=== PATIENT | female | born 1970 | race American Indian/Alaskan Native ===

== ENCOUNTER 2022-09-18 12:41 | Emergency (ER) | payer MEDICAID ==
[2022-09-18] MEDS ORDERED: Sodium Chloride 0.9% 10 ML Syringe FLUSH PRN (12:56)
[2022-09-18] MEDS ORDERED: Ondansetron 4 MG/2 ML SDV IVPUSH ONE (13:38)
[2022-09-18] MEDS ORDERED: Sodium Chloride 0.9% 1,000 ML IV STA (13:38)
[2022-09-18 14:11] LABS: CORONAVIRUS COVID-19 NAA NEGATIVE (NEGATIVE)
[2022-09-18] MEDS ORDERED: Ketorolac 30 MG/ML SDV IVPUSH ONE (14:20)
== END 2022-09-18 15:20 | disposition home or self-care (01) ==
LOC: JD.ED 12:41
DX: A08.4 Viral intestinal infection, unspecified (principal); I10 Essential (primary) hypertension; Z20.822 Contact with and (suspected) exposure to COVID-19
CPT/HCPCS: 0240U; 36415; 80053; 81001; 85025; 86140; 96361; 96374; 96375; 99284; J1885; J2405; J3490; J7030; 99283

== ENCOUNTER 2022-10-18 06:48 | Day surgery (SDC) | payer MEDICAID ==
[~2022-10-18 06:48] MED LIST: Lactated Ringers 1,000 ML IV SCH; Lidocaine 1%/Sod Bicarbonate in NS 8.4% 1 ML Syringe IDERM PRN; Sodium Chloride 0.9% 10 ML Syringe FLUSH PRN; Sodium Chloride 0.9% 10 ML Syringe FLUSH SCH
[2022-10-18] MEDS ORDERED: fentaNYL 100 MCG/2 ML SDV ONE (07:20)
[2022-10-18] MEDS ORDERED: Propofol 200 MG/20 ML SDV ONE (07:20)
[2022-10-18] MEDS ORDERED: Midazolam 1 MG/ML 2 ML SDV ONE (07:20)
[2022-10-18] MEDS ORDERED: Lidocaine 1% 4 ML ONE (07:22)
== END 2022-10-18 09:40 | disposition home or self-care (01) ==
LOC: JD.SDS 06:48
PROVIDERS: ATTEND Surgery
DX: D12.0 Benign neoplasm of cecum (principal); K57.30 Diverticulosis of large intestine without perforation or abscess without bleeding; K29.70 Gastritis, unspecified, without bleeding; K21.00 Gastro-esophageal reflux disease with esophagitis, without bleeding; K22.89 Other specified disease of esophagus; K31.89 Other diseases of stomach and duodenum; K62.5 Hemorrhage of anus and rectum; I10 Essential (primary) hypertension; F41.9 Anxiety disorder, unspecified; F33.2 Major depressive disorder, recurrent severe without psychotic features; Z90.49 Acquired absence of other specified parts of digestive tract; Z79.899 Other long term (current) drug therapy
CPT/HCPCS: 43239; 45380; J2250; J2704; J7120; 00813; J3010; J3490

== ENCOUNTER 2023-08-07 10:53 | Emergency (ER) | payer MEDICAID ==
[2023-08-07 11:54] LABS: BASOPHILS ABSOLUTE AUTO 0.1 K/mm3 (0.0-0.2); BASOPHILS PERCENT AUTO 0.6 % (0.0-1.0); EOSINOPHILS ABSOLUTE AUTO 0.1 K/mm3 (0.0-0.4); EOSINOPHILS PERCENT AUTO 1.6 % (0.0-6.0); HEMATOCRIT 41.2 % (37.0-47.0); HEMOGLOBIN 13.9 gm/dl (12.0-16.0); IMMATURE GRAN ABSOLUTE AUTO 0.04 K/mm3 (0.00-0.05); IMMATURE GRAN PERCENT AUTO 0.5 % (0.0-0.4); LYMPHOCYTES ABSOLUTE AUTO 2.4 K/mm3 (1.0-4.8); LYMPHOCYTES PERCENT AUTO 29.5 % (24.0-44.0); MEAN CORPUSCULAR HEMOGLOBIN 30.4 pg (28.0-32.0); MEAN CORPUSCULAR HGB CONC 33.7 g/dl (32.0-36.0); MEAN CORPUSCULAR VOLUME 90.2 fl (83.0-99.0); MEAN PLATELET VOLUME 9.1 fl (9.4-12.3); MONOCYTES ABSOLUTE AUTO 0.6 K/mm3 (0.0-0.8); MONOCYTES PERCENT AUTO 7.3 % (0.0-8.0); NEUTROPHILS ABSOLUTE AUTO 4.8 K/mm3 (1.8-7.7); NEUTROPHILS PERCENT AUTO 60.5 % (41.0-71.0); PLATELET COUNT,PLT 379 K/mm3 (150-400); RED BLOOD CELL COUNT 4.57 M/mm3 (4.10-5.30)
[2023-08-07 12:12] LABS: INR 0.97; PROTHROMBIN TIME 10.4 SECONDS (9.7-12.0)
[2023-08-07 12:13] LABS: D-DIMER QUANTITATIVE 0.23 mg/L (0.19-0.50)
[2023-08-07] MEDS: Aspirin 81 MG Tab.Chew PO ONE (12:25)
[2023-08-07 12:26] LABS: ALBUMIN 3.5 g/dl (3.4-5.0); ANION GAP 13.7 (5-15); BILIRUBIN TOTAL 0.4 mg/dL (0.2-1.0); BUN/CREATININE RATIO 18.6 (14-18); CALCIUM 8.9 mg/dL (8.5-10.1); CREATININE 0.7 mg/dL (0.55-1.02); EST CRCL DRUG DOSING (CG) 68.29 mL/min; MAGNESIUM 1.9 mg/dL (1.8-2.4); POTASSIUM,K 3.7 mEq/L (3.5-5.1); PROTEIN TOTAL,TP 7.1 g/dl (6.4-8.2)
[2023-08-07] MEDS: Glucagon,Human Recombinant 1 MG Vial IVPUSH ONE (12:28)
[2023-08-07] MEDS: Sodium Chloride 0.9% 10 ML Syringe FLUSH PRN (12:31)
[2023-08-07] MEDS: Alum Hydrox/Mag Hydrox/Simeth 30 ML, Lidocaine 2% 15 ML PO ONE (13:32)
[2023-08-07] MEDS: Sucralfate Suspension 1 GM/10 ML Cup PO ONE (16:20)
[2023-08-07] MEDS: Pantoprazole 40 MG Vial IVPUSH SCH (16:22)
== END 2023-08-07 16:35 | disposition home or self-care (01) ==
LOC: JD.ED 10:53
DX: K20.90 Esophagitis, unspecified without bleeding (principal); I10 Essential (primary) hypertension; E11.9 Type 2 diabetes mellitus without complications; Z86.16 Personal history of COVID-19
CPT/HCPCS: 36415; 71045; 80053; 83735; 84484; 84702; 85025; 85379; 85610; 93005; 96374; 96375; 99285; A9270; C9113; J1610; J3490

== ENCOUNTER 2023-11-19 11:34 | Emergency (ER) | payer MEDICAID ==
[2023-11-19] MEDS: Diphtheria,Pertussis(Acell),Tetanus Vaccine 0.5 ML Syringe IM ONE (12:45)
== END 2023-11-19 12:57 | disposition home or self-care (01) ==
LOC: JD.ED 11:34
DX: S61.207A Unspecified open wound of left little finger without damage to nail, initial encounter (principal); I10 Essential (primary) hypertension; K21.9 Gastro-esophageal reflux disease without esophagitis; E11.9 Type 2 diabetes mellitus without complications; Z90.49 Acquired absence of other specified parts of digestive tract; Z79.899 Other long term (current) drug therapy; Z23 Encounter for immunization; W26.8XXA Contact with other sharp object(s), not elsewhere classified, initial encounter
CPT/HCPCS: 90471; 90715; 99282; 99282-25

== ENCOUNTER 2024-02-05 10:47 | Emergency (ER) | payer MEDICAID ==
[2024-02-05] MEDS: Sodium Chloride 0.9% 1,000 ML IV SCH (11:25)
[2024-02-05] MEDS: Sodium Chloride 0.9% 10 ML Syringe FLUSH PRN (11:26)
[2024-02-05 11:34] LABS: BASOPHILS PERCENT AUTO 0.5 % (0.0-1.0); EOSINOPHILS ABSOLUTE AUTO 0.1 K/mm3 (0.0-0.4); EOSINOPHILS PERCENT AUTO 0.8 % (0.0-6.0); HEMATOCRIT 41.6 % (37.0-47.0); HEMOGLOBIN 13.9 gm/dl (12.0-16.0); IMMATURE GRAN ABSOLUTE AUTO 0.03 K/mm3 (0.00-0.05); IMMATURE GRAN PERCENT AUTO 0.4 % (0.0-0.4); LYMPHOCYTES ABSOLUTE AUTO 1.5 K/mm3 (1.0-4.8); LYMPHOCYTES PERCENT AUTO 19.5 % (24.0-44.0); MEAN CORPUSCULAR HGB CONC 33.4 g/dl (32.0-36.0); MEAN CORPUSCULAR VOLUME 89.7 fl (83.0-99.0); MEAN PLATELET VOLUME 9.3 fl (9.4-12.3); MONOCYTES ABSOLUTE AUTO 0.4 K/mm3 (0.0-0.8); MONOCYTES PERCENT AUTO 5.7 % (0.0-8.0); NEUTROPHILS ABSOLUTE AUTO 5.5 K/mm3 (1.8-7.7); NEUTROPHILS PERCENT AUTO 73.1 % (41.0-71.0); PLATELET COUNT,PLT 325 K/mm3 (150-400); RED BLOOD CELL COUNT 4.64 M/mm3 (4.10-5.30)
[2024-02-05 12:07] LABS: ALBUMIN 3.3 g/dl (3.4-5.0); ANION GAP 14.8 (5-15); BILIRUBIN TOTAL 0.4 mg/dL (0.2-1.0); BUN/CREATININE RATIO 12.5 (14-18); C-REACTIVE PROTEIN 3.27 mg/dL (<0.30); CALCIUM 8.8 mg/dL (8.5-10.1); CREATININE 0.8 mg/dL (0.55-1.02); EST CRCL DRUG DOSING (CG) 59.76 mL/min; POTASSIUM,K 3.8 mEq/L (3.5-5.1); PROTEIN TOTAL,TP 6.5 g/dl (6.4-8.2)
[2024-02-05 12:56] LABS: LACTIC ACID 1.6 mmol/L (0.4-2.0)
== END 2024-02-05 13:45 | disposition home or self-care (01) ==
LOC: JD.ED 10:47
DX: J98.8 Other specified respiratory disorders (principal); I10 Essential (primary) hypertension; E11.9 Type 2 diabetes mellitus without complications; Z86.16 Personal history of COVID-19; Z90.49 Acquired absence of other specified parts of digestive tract; Z79.899 Other long term (current) drug therapy
CPT/HCPCS: 36415; 71045; 80053; 83605; 84484; 85025; 86140; 87635; 93005; 96360; 96361; 99285; J3490; J7030; U0002

== ENCOUNTER 2024-05-31 09:19 | Emergency (ER) | payer MEDICAID ==
[2024-05-31] MEDS ORDERED: Ondansetron 4 MG/2 ML SDV IVPUSH ONE (10:27)
[2024-05-31 10:55] LABS: BASOPHILS PERCENT AUTO 0.4 % (0.0-1.0); EOSINOPHILS ABSOLUTE AUTO 0.1 K/mm3 (0.0-0.4); EOSINOPHILS PERCENT AUTO 1.3 % (0.0-6.0); HEMATOCRIT 47.7 % (37.0-47.0); HEMOGLOBIN 15.6 gm/dl (12.0-16.0); IMMATURE GRAN ABSOLUTE AUTO 0.04 K/mm3 (0.00-0.05); IMMATURE GRAN PERCENT AUTO 0.5 % (0.0-0.4); LYMPHOCYTES ABSOLUTE AUTO 2.1 K/mm3 (1.0-4.8); LYMPHOCYTES PERCENT AUTO 25.1 % (24.0-44.0); MEAN CORPUSCULAR HEMOGLOBIN 29.7 pg (28.0-32.0); MEAN CORPUSCULAR HGB CONC 32.7 g/dl (32.0-36.0); MEAN CORPUSCULAR VOLUME 90.9 fl (83.0-99.0); MEAN PLATELET VOLUME 9.1 fl (9.4-12.3); MONOCYTES ABSOLUTE AUTO 0.6 K/mm3 (0.0-0.8); MONOCYTES PERCENT AUTO 6.7 % (0.0-8.0); NEUTROPHILS ABSOLUTE AUTO 5.4 K/mm3 (1.8-7.7); PLATELET COUNT,PLT 424 K/mm3 (150-400); RED BLOOD CELL COUNT 5.25 M/mm3 (4.10-5.30); WHITE BLOOD CELL COUNT,WBC 8.18 K/mm3 (3.9-11.3)
[2024-05-31] MEDS: Sodium Chloride 0.9% 1,000 ML IV SCH (10:58)
[2024-05-31] MEDS: Ondansetron 4 MG/2 ML SDV IVPUSH ONE (10:58)
[2024-05-31 11:22] LABS: A/G RATIO 1.1 (1-2); BILIRUBIN TOTAL 0.9 mg/dL (0.2-1.0); BUN/CREATININE RATIO 16.7 (14-18); CREATININE 0.9 mg/dL (0.55-1.02); EST CRCL DRUG DOSING (CG) 52.52 mL/min; PROTEIN TOTAL,TP 7.8 g/dl (6.4-8.2)
[2024-05-31 15:04] LABS: APPEARANCE,URINE TURBID (Clear); BILIRUBIN,URINE 1+ (Negative); COLOR,URINE YELLOW (Yellow); GLUCOSE,URINE NEGATIVE (Negative); KETONES,URINE NEGATIVE (Negative); LEUKOCYTE ESTERASE,URINE NEGATIVE (Negative); NITRITE,URINE NEGATIVE (Negative); OCCULT BLOOD,URINE NEGATIVE (Negative); PH,URINE 5.5 (5.0-8.0); PROTEIN,URINE 2+ (Negative); UROBILINOGEN,URINE 0.2 (0.2-1.0)
[2024-05-31 15:14] LABS: AMORPHOUS SEDIMENT,URINE MANY /hpf (NOT SEEN); BACTERIA,URINE FEW /hpf (FEW); MUCUS,URINE FEW /hpf (FEW); RBC,URINE 0-5 /hpf (0-5); SQUAMOUS EPITHELIAL CELLS,UR 0-5 /hpf (0-5); WBC,URINE 0-5 /hpf (0-5)
== END 2024-05-31 15:00 | disposition home or self-care (01) ==
LOC: JD.ED 09:19
DX: R11.2 Nausea with vomiting, unspecified (principal); R19.7 Diarrhea, unspecified; R10.84 Generalized abdominal pain; I10 Essential (primary) hypertension; K21.9 Gastro-esophageal reflux disease without esophagitis; E11.9 Type 2 diabetes mellitus without complications; Z86.16 Personal history of COVID-19; Z90.49 Acquired absence of other specified parts of digestive tract; Z79.899 Other long term (current) drug therapy
CPT/HCPCS: 36415; 80053; 81001; 83690; 83735; 85025; 96361; 96374; 99284; J2405; J7030

== ENCOUNTER 2024-11-19 09:32 | Emergency (ER) | payer MEDICAID ==
[2024-11-19] MEDS: Lisinopril 20 MG Tab PO SCH (10:48)
[2024-11-19] MEDS: Acetaminophen/HYDROcodone 325-5 MG Tab PO ONE (13:14)
[2024-11-19] MEDS: Acetaminophen 325 MG Tab PO ONE (13:14)
[2024-11-19] MEDS: Ketorolac 60 MG/2 ML SDV IM ONE (13:14)
== END 2024-11-19 13:45 | disposition home or self-care (01) ==
LOC: JD.ED 09:32
DX: B34.9 Viral infection, unspecified (principal); R04.0 Epistaxis; M54.2 Cervicalgia; I10 Essential (primary) hypertension; E11.9 Type 2 diabetes mellitus without complications; Z79.899 Other long term (current) drug therapy
CPT/HCPCS: 71045; 87426; 96372; 99283; A9270; J1885; 99284